=== PATIENT | male | born 1980 | race Caucasian/White ===

== ENCOUNTER 2017-11-15 21:06 | Emergency (ER) | payer OTHER ==
--- NOTE | 2017-11-15 21:07 | PDOC ---
History of Present Illness - General History Source: Patient Exam Limitations: No Limitations - History of Present Illness Initial Comments: 11/15/17 21:32 The patient is a 37 year old male with past medical history of relapsing/ remission multiple sclerosis (last flare up February 2016) who was sent to the ED from Urgent Care for abnormal EKG changes. The patient states that throughout the day he developed a sternal chest pain that was worse with change in position as well as when pressing on it. He describes it as a soreness. Additionally, he reports a pain in his right jaw which concerned him. Upon arrival to urgent care, his EKG was abnormal and was sent here. The patient denies any associated diaphoresis, shortness of breath, lightheadedness, or headache. He denies any recent illness.He denies any nausea, vomiting, diarrhea , cough, or urinary symptoms. <Shira Woods - Last Filed: 11/15/17 21:31> <Gianfranco Chino - Last Filed: 11/16/17 02:24> - General Chief Complaint: Chest Pain Stated Complaint: EKG CHANGES Time Seen by Provider: 11/15/17 21:07 Past History <Shira Woods - Last Filed: 11/15/17 21:31> <Gianfranco Chino - Last Filed: 11/16/17 02:24> - Past Medical History Allergies/Adverse Reactions: Allergies Allergy/AdvReac Type Severity Reaction Status Date / Time No Known Allergies Allergy Unverified 11/15/17 21:06 Home Medications: Ambulatory Orders Fingolimod HCl [Gilenya] 0.5 mg PO DAILY 11/15/17 Review of Systems - Review of Systems Able to Perform ROS?: Yes Comments:: 11/15/17 21:35 GENERAL/CONSTITUTIONAL: No fever or chills. No weakness. HEAD, EYES, EARS, NOSE AND THROAT: Present: right jaw pain No change in vision. No ear pain or discharge. No sore throat. CARDIOVASCULAR: Present: chest pain No shortness of breath. RESPIRATORY: No cough, wheezing, or hemoptysis. GASTROINTESTINAL: No nausea, vomiting, diarrhea or constipation. GENITOURINARY: No dysuria, frequency, or change in urination. MUSCULOSKELETAL: No neck or back pain. SKIN: No rash NEUROLOGIC: No headache, vertigo, loss of consciousness, or change in strength/ sensation. ENDOCRINE: No increased thirst. No abnormal weight change. HEMATOLOGIC/LYMPHATIC: No anemia, easy bleeding, or history of blood clots. ALLERGIC/IMMUNOLOGIC: No hives or skin allergy. All Other Systems: Reviewed and Negative <Shira Woods - Last Filed: 11/15/17 21:31> *Physical Exam - Vital Signs Last Vital Signs Temp Pulse Resp BP Pulse Ox 97.8 F 64 16 117/74 97 11/15/17 21:08 11/15/17 21:08 11/15/17 21:08 11/15/17 21:08 11/15/17 21:08 - Physical Exam Comments: 11/15/17 21:36 GENERAL: Awake, alert, and fully oriented, in no acute distress HEAD: No signs of trauma EYES: PERRLA, EOMI, sclera anicteric, conjunctiva clear ENT: Auricles normal inspection, hearing grossly normal, nares patent, oropharynx clear without exudates. Moist mucosa NECK: Normal ROM, supple, no lymphadenopathy, JVD, or masses LUNGS: Breath sounds equal, clear to auscultation bilaterally. No wheezes, and no crackles HEART: Anterior chest wall tenderness. Regular rate and rhythm, normal S1 and S2 , no murmurs, rubs or gallops ABDOMEN: Soft, nontender, normoactive bowel sounds. No guarding, no rebound. No masses EXTREMITIES: Normal range of motion, no edema. No clubbing or cyanosis. No cords, erythema, or tenderness NEUROLOGICAL: Cranial nerves II through XII grossly intact. Normal speech, normal gait SKIN: Warm, Dry, normal turgor, no rashes or lesions noted. <Shira Woods - Last Filed: 11/15/17 21:31> Medical Decision Making - Medical Decision Making 11/16/17 02:22 biphasic Ts in v1 & v2 not true [facility] pattern. low pre-test prob for ACS (no crfs)--troponin x1 after persistent pain sufficient to r/o ACS in this patient cardiology fu 11/16/17 02:24 <Gianfranco Chino - Last Filed: 11/16/17 02:24> *DC/Admit/Observation/Transfer - Attestations Scribe Attestion: 11/15/17 21:37 Documentation prepared by Shira Woods, acting as medical superintendent for Gianfranco Chino MD. <Shira Woods - Last Filed: 11/15/17 21:31> <Gianfranco Chino - Last Filed: 11/16/17 02:24> Diagnosis at time of Disposition: Abnormal ECG - Discharge Dispostion Disposition: HOME Condition at time of disposition: Stable - Referrals Referrals: Franca Cottrell MD [Staff Physician] - Call tomorrow - Patient Instructions Printed Discharge Instructions: DI for Atypical Chest Pain
[2017-11-15 21:10] VITALS: BP 117/74; PULSE 64; TEMP 97.8; BMI 25.0
--- NOTE | 2017-11-16 12:31 | EKG ---
Test Reason : Blood Pressure : / mmHG Vent. Rate : 064 BPM Atrial Rate : 064 BPM P-R Int : 170 ms QRS Dur : 088 ms QT Int : 420 ms P-R-T Axes : 076 065 054 degrees QTc Int : 433 ms NORMAL SINUS RHYTHM NONSPECIFIC T WAVE ABNORMALITY POSSIBLE LEFT ATRIAL ENLARGEMENT NO PREVIOUS ECGS AVAILABLE Confirmed by TRUDY DE LA CRUZ MD ([id number] on 11/16/2017 12:31:31 PM Referred By: MD BLACKMON Confirmed By:TRUDY DE LA CRUZ MD
== END 2017-11-15 22:56 | disposition home or self-care (01) ==
LOC: FER 21:06
DX: R94.31 Abnormal electrocardiogram [ECG] [EKG] (principal)
CPT/HCPCS: 36415; 84484; 93005; 99282-25

== ENCOUNTER 2019-01-19 21:59 | Emergency (ER) | payer OTHER ==
[2019-01-19 22:07] VITALS: BP 140/81; PULSE 68; TEMP 97.6; BMI 24.9
--- NOTE | 2019-01-19 22:13 | PDOC ---
History of Present Illness - General History Source: Patient Exam Limitations: No Limitations - History of Present Illness Initial Comments: 01/19/19 22:33 The patient is a 38 year old male, who presents to the ED complaining of right elbow swelling for the past 3 hours. He notes that he was sitted at work when the symptoms started He reports that yesterday he had a bug bite on the same arm but on the opposite side of the elbow. He denies falls or trauma. He denies taking any medication or using any topical solution. He notes that he went to urgent care earlier today and was advised to come to the ED for further evaluation for a possible Septic elbow. He reports that he sits at his desk most of the day and denies any continues planting of his elbows. The patient denies chest pain, shortness of breath, headache and dizziness. Denies fever, chills, nausea, vomiting, diarrhea or constipation. PAST MEDICAL HISTORY: MS PAST SURGICAL HISTORY: no significant history FAMILY HISTORY: no pertinent history SOCIAL HISTORY: Pt lives with family and is employed. MEDICATIONS: reviewed ALLERGIES: As per nursing notes General: No fevers or chills, no weakness, no weight loss HEENT: No change in vision. No sore throat. No ear pain CardioVascular: No chest pain or shortness of breath Respiratory:No cough, or wheezing. Gastrointestinal: no nausea, vomiting, diarrhea or constipation, No rectal bleeding Genitourinary: No dysuria, hematuria, or frequency Musculoskeletal: (+) Right elbow pain and erythema Neurologic: No headache, vertigo, dizziness or loss of consciousness Psychiatric: nor depression Skin: No rashes or easy bruising Endocrine: no increased thirst or abnormal weight change Allergic: no skin or latex allergy All other systems reviewed and normal General: Well-nourished well-developed individual, no acute distress HEENT: Throat: Normal, tonsils normal, no erythema or exudate Neck: Supple, no meningeal signs, no lymphadenopathy Eyes::Pupils equal reactive and round, extraocular motion intact Chest: Nontender to palpation Cardiac: S1-S2 normal, regular rate and rhythm, no murmurs rubs or gallops Respiratory: Lungs clear to auscultation bilateral Extremities: (+) Right elbow Mild swelling, tenderness, slight increased in warmth, no tenderness to palpation or flexion of elbow joint. Skin: No rashes Neuro: Alert and oriented x3, nonfocal exam, grossly intact, normal gait <Shilo Salinas - Last Filed: 01/19/19 22:33> - General History Source: Patient Exam Limitations: No Limitations - History of Present Illness Initial Comments: A portion of this note was documented by scribe services under my direction. I have reviewed the details of the note, within reason, and agree with the documentation with the following case summary and management plan written by me. Patient treated in the ED. Nursing notes are reviewed and incorporated into the medical decision-making. Vital signs reviewed. Assessment and plan: This is a 38-year-old male who comes in complaining of pain over the right olecranon bursa area. Patient did appear to have an olecrenon bursitis uncertain etiology however the bursa was drained with what appeared to be slightly bloody serosanguineous fluid. Sterile dressing Aman wrap was applied over the area and patient was discharged home. I will follow-up with the cell count and evidence appears to be any sign of infection I will start patient on antibiotics. Procedure note: Area over the olecranon bursa was cleaned with Betadine and anesthetized with 1 % lidocaine no epinephrine approximately 1 mL, an 18-gauge needle was inserted and approximately 2 mL of slightly bloody serosanguineous fluid was withdrawn sterile dressing and Aman wrap were applied over the area patient tolerated well 01/19/19 22:44 <David Guzman I - Last Filed: 01/19/19 22:49> - General Chief Complaint: Pain, Acute Stated Complaint: SENT FROM URGENT CARE FOR SEPTIC ELBOW Time Seen by Provider: 01/19/19 22:12 Past History <Shilo Salinas - Last Filed: 01/19/19 22:33> - Past Medical History COPD: No Other medical history: MS - Suicide/Smoking/Psychosocial Hx Smoking History: Never smoked Have you smoked in the past 12 months: No Information on smoking cessation initiated: No Hx Alcohol Use: Yes Drug/Substance Use Hx: No <David Guzman I - Last Filed: 01/19/19 22:49> - Past Medical History Allergies/Adverse Reactions: Allergies Allergy/AdvReac Type Severity Reaction Status Date / Time No Known Allergies Allergy Verified 01/19/19 22:00 Home Medications: Ambulatory Orders Unobtainable 01/19/19 *Physical Exam - Vital Signs Last Vital Signs Temp Pulse Resp BP Pulse Ox 97.6 F 68 16 140/81 100 01/19/19 22:04 01/19/19 22:04 01/19/19 22:04 01/19/19 22:04 01/19/19 22:04 <Shilo Salinas - Last Filed: 01/19/19 22:33> - Vital Signs Last Vital Signs Temp Pulse Resp BP Pulse Ox 97.6 F 68 16 140/81 100 01/19/19 22:04 01/19/19 22:04 01/19/19 22:04 01/19/19 22:04 01/19/19 22:04 <David Guzman I - Last Filed: 01/19/19 22:49> *DC/Admit/Observation/Transfer - Attestations Scribe Attestion: 01/19/19 22:33 Documentation prepared by Shilo Salinas, acting as medical advisor for David Guzman MD <Shilo Salinas - Last Filed: 01/19/19 22:33> - Discharge Dispostion Decision to Admit order: No <David Guzman I - Last Filed: 01/19/19 22:49> Diagnosis at time of Disposition: Olecranon bursitis of right elbow - Discharge Dispostion Disposition: HOME Condition at time of disposition: Stable - Patient Instructions Additional Instructions: Take naproxen 2 tablets twice a day for the next 3-4 days this is for inflammation. Wear the Aman wrap to give some gentle compression to the area to keep the fluid from reaccumulating. Return to the emergency department immediately with ANY new, persistent or worsening symptoms. Continue any medications as previously prescribed by your physician. You should follow up with your primary doctor as soon as possible regarding today's emergency department visit. . Please make sure your doctor reviews the results of your emergency evaluation. Thank you for coming to the Emergency Department today for your care. It was a pleasure to see you today. Please note that your evaluation is INCOMPLETE until you follow-up with your doctor.
[2019-01-19] MEDS ORDERED: LIDOCAINE HCL 1%, 10 MG/ML (20ML VIAL) ONE (22:22)
[2019-01-19] MEDS ORDERED: NAPROXEN 500 MG TABLET (FP) PO ONE (22:31)
[2019-01-19] MEDS ORDERED: NAPROXEN 500 MG TABLET (FP) ONE (22:32)
[2019-01-20 02:04] LABS: SYNOVIAL FLUID RBC 11714 /mm3; SYNOVIAL FLUID SOURCE SYNOVIAL
[2019-01-20 04:17] LABS: SYNOVIAL FLUID LYMPHOCYTES 26 %; SYNOVIAL FLUID NEUTROPHILS 72 %
== END 2019-01-19 22:35 | disposition home or self-care (01) ==
LOC: FER 21:59
DX: S52.021A Displaced fracture of olecranon process without intraarticular extension of right ulna, initial encounter for closed fracture (principal); M70.21 Olecranon bursitis, right elbow
CPT/HCPCS: 87070; 87077; 87205; 89051; 99281-25